=== PATIENT | male | born 1955 | race Caucasian/White ===

== ENCOUNTER → 2021-03-28 08:28 | Outpatient (CLI) | payer MEDICAID, SELFPAY ==
--- NOTE | 2021-03-28 08:34 | CT_ITS ---
STUDY: LOW DOSE CT LUNG CANCER SCREENING REASON FOR EXAM: Male, 65 years old. TOBACCO USE. The patient smoked 1 pack per day for 46 years. RADIATION DOSAGE (If Supplied By Facility): CTDIvol = ( 3.02 ) mGy, DLP = ( 104.95 ) mGycm TECHNIQUE: No contrast was administered. Low dose technique was utilized (average mAS-38 and kVp 120). 1.25 mm axial source images with a slice interval of 1.25-mm were reconstructed in lung windows. 2.5 mm axial source images with a slice interval of 2.5-mm were reconstructed in lung windows. 5.0 mm axial source images with a slice interval of 5.0-mm were reconstructed in soft tissue windows. Nodule measured using lung windows on PACS and/or independent workstation with automated measurement of minimum and maximum diameter. Nodule measurement reported as average diameter rounded to the nearest whole number. Growth is defined as an increase ins size of greater than 1.5 mm. COMPARISON: None. NODULES: No suspicious nodules are seen. Emphysema: Scarring at both lung apices. Emphysematous changes involving both lungs. Endobronchial lesion: None Aorta: Mild atherosclerotic plaques of the aortic arch. Coronary arteries: Coronary artery calcification. Heart: Unremarkable Pulmonary artery: Mediastinal nodes: Calcified subcarinal and right hilar lymph nodes. Other chest and abdominal findings: CT/Low Dose CT Lung Screening IMPRESSION: Lung-RADS category 2 - Continue annual screening with LDCT in 12 months. IMPORTANT NOTES FOR USE: ACR Lung-RADS Version 1.1 Assessment Categories Release Date: 2018 Category: Coded 0-4 bases on nodule(s) with highest degree of suspicion. Negative screen is defined as categories 1 and 2; a positive screen is defined as categories 3 and 4. Category 3 and 4A nodules that are unchanged on interval CT should be coded as category 2, and individuals returned to screening in 12 months. Category 4X: Category 3 or 4 nodules with additional imaging findings that increase the suspicion of lung cancer, such as spiculation, GGN that doubles in size in 1 year, enlarged lymph notes, etc. Category Modifiers: S (significant finding unrelated to lung cancer) Electronically Signed: Wesley Light MD at 12:41 EST , Service support ,
== END ==
PROVIDERS: PCP Student in an Organized Health Care Education/Training Program; Referring Provider Student in an Organized Health Care Education/Training Program; Visit Provider Student in an Organized Health Care Education/Training Program
DX: Z12.2 Encounter for screening for malignant neoplasm of respiratory organs (principal); Z87.891 Personal history of nicotine dependence
CPT/HCPCS: 71271

== ENCOUNTER 2023-09-06 12:27 | Inpatient (IN) | payer MEDICARE, MEDICAID, SELFPAY ==
[2023-09-06] VITALS (24 sets, daily range): BP systolic 130–180; BP diastolic 69–102; PULSE 58–94; RESP 13–25; TEMP 36.3–37.2; O2SAT 96–100; BMI 25.7; BMI 25.0
--- NOTE | 2023-09-06 12:34 | EKG12_ITS ---
Test Reason : CP Blood Pressure : / mmHG Vent. Rate : 060 BPM Atrial Rate : 060 BPM P-R Int : 130 ms QRS Dur : 100 ms QT Int : 434 ms P-R-T Axes : 048 014 100 degrees QTc Int : 434 ms Normal sinus rhythm Nonspecific ST and T wave abnormality Abnormal ECG Confirmed by DAIMAN KHAN, ADWOA ([id number]), legal editor ARLENE ARGUELLES ([id number]) on 09/09/2023 6:48:28 AM Referred By: Isiah Sahu Confirmed By:ADWOA SALGADO MD
[2023-09-06] MEDS: Heparin Injection (Vial) 5,000 UNIT/ML VIAL 4000 UNIT IV (12:38)
[2023-09-06] MEDS: TICAGRELOR 90 MG TABLET 180 MG PO (12:38)
--- NOTE | 2023-09-06 12:39 | EDS_ITS ---
HPI History of Present Illness Chief Complaint: Chest Pain Informant: patient Narrative Narrative: Patient is a 67-year-old male with history of hypertension, hyperlipidemia and depression presenting with chest pain. Patient developed chest pain suddenly around noon today. He had associated diaphoresis, describes the pain as aching and radiates to his bilateral shoulders. Denies any associated shortness of breath or nausea. 911 was called and EMS EKG showed ST elevations in inferior leads as well as reciprocal changes in the septal leads as well as depressions in 1 and aVL. STEMI alert was called. Patient was given 324 mg of aspirin prior to arrival. Patient did not have chest pain but notes it is mildly improved compared to when it first started. Denies any known history of coronary artery disease. No other complaints or concerns reported at this time. [facility] Home Medications ?Medication ?Instructions ?Recorded ?Last Taken ?Type amlodipine 5 mg tablet 5 mg PO DAILY 09/06/23 Unknown History atorvastatin 20 mg tablet 20 mg PO QHS 09/06/23 Unknown History venlafaxine 150 mg 150 mg PO DAILY 09/06/23 Unknown History capsule,extended release 24 hr Allergy/AdvReac Type Severity Reaction Status Date / Time No Known Allergies Allergy Verified 09/06/23 12:35 [facility] ED Constitutional Constitutional ED: Reports sweats; Denies chills Cardiovascular Cardiovascular: Reports as per HPI and chest pain; Denies palpitations Respiratory/Chest Respiratory/Chest: Denies cough or dyspnea Gastrointestinal Gastrointestinal: Denies nausea or vomiting Neurologic Neurologic: Denies paresthesias or weakness Psychiatric Psychiatric: Denies anxiety or depression Hematologic/Lymphatic Hematologic/Lymphatic: Denies easy bleeding or easy bruising EXAM Physical Exam Const Vital Signs: 09/06/23 12:30 09/06/23 12:34 Temperature 98.2 F Temperature Source Temporal Pulse Rate 58 L Respiratory Rate 18 Blood Pressure 180/93 H 180/93 H Blood Pressure Mean 122 Pulse Ox 100 Oxygen Delivery Method Room Air Positive well nourished and well developed Constitutional Narrative: Diaphoretic General Appearance ED: well developed and NAD HEENT Reports moist mucous membranes Eyes PERRL Neck supple and no JVD Chest Wall inspection of chest normal and palpation of chest normal Resp normal respiratory effort and clear to auscultation bilaterally Cardio regular rate, regular rhythm and no murmurs Peripheral Pulses: pulses 2+ throughout GI non-distended Extremity normal to inspection General Extremety ED: Negative for edema General Extremity: Negative for edema Neuro oriented x3 Sensorium / Orientation: awake and alert Motor Exam: Negative for general weakness Psych mental status grossly normal Skin no rashes or lesions noted and no wounds Heart Score History: Highly Suspicious ECG: Significant ST-Depression Age: >/= 65 years Risk Factors: >/= 3 Risk Factors or History of CAD Score: 8 MDM MDM MDM Narrative Medical decision making narrative: Patient evaluation of some chest pain. Prearrival EKG shows inferior NM. STEMI alert is called. Upon arrival patient continues have chest pain. STEMI protocol followed. Patient is given IV heparin and Brilinta in the emergency room. Repeat EKG in the emergency room no longer shows a STEMI but given his presentation, prior EKG and continued chest pain patient will still be sent to the Flight Agent. Case discussed at the bedside with cardiology, Dr. Parish. Patient is agreeable this plan of care. is at the bedside and they both understand of the plan of care and his diagnosis at this time. Due to the inferior NM patient is not given nitroglycerin for chest pain in the ER. Rhythm Strip Rhythm Strip: Sinus Rhythm Rate: 60 Ectopy: None EKG Initial EKG: Attestation: I personally reviewed and interpreted this EKG as follows: Interpretation: Sinus Rhythm Comments: Normal sinus rhythm at a rate of 60 bpm Normal axis Normal intervals Nonspecific T wave changes throughout but no clear ST elevation NM Management Discussion w/another healthcare provider: Hospitalist and Biology Specialist Critical Care Time Critical Care Time: Yes Critical care time (excluding procedures): 30-74 minutes (30), Discussing w/Patient &/or Family/Terminal Block Assembler, Discussing w/Consultants and Arranging Admissi on or Transfer Discharge Plan Triage Chief Complaint: Chest Pain ED Provider: Mary Rosas Dx/Rx/DC Orders Clinical Impression: ST elevation (STEMI) myocardial infarction, Chest pain, Hypertension Prescriptions: No Action atorvastatin 20 mg tablet 20 mg PO QHS venlafaxine 150 mg capsule,extended release 24hr 150 mg PO DAILY amlodipine 5 mg tablet 5 mg PO DAILY Primary Care Provider: Colton Rowe Referrals: Colton Rowe DO [Primary Care Provider] - Print Language: Vietnamese Disposition Disposition: Acute Care [facility]
--- NOTE | 2023-09-06 12:39 | ED.VIS.CHEST ---
HPI History of Present Illness Chief Complaint: Chest Pain Informant: patient Narrative Narrative: Patient is a 67-year-old male with history of hypertension, hyperlipidemia and depression presenting with chest pain. Patient developed chest pain suddenly around noon today. He had associated diaphoresis, describes the pain as aching and radiates to his bilateral shoulders. Denies any associated shortness of breath or nausea. 911 was called and EMS EKG showed ST elevations in inferior leads as well as reciprocal changes in the septal leads as well as depressions in 1 and aVL. STEMI alert was called. Patient was given 324 mg of aspirin prior to arrival. Patient did not have chest pain but notes it is mildly improved compared to when it first started. Denies any known history of coronary artery disease. No other complaints or concerns reported at this time. [facility] Medical History (Updated 09/06/23 @ 14:34 by Becky Munoz) Smoker Depression Home Medications ?Medication ?Instructions ?Recorded ?Last Taken ?Type amlodipine 5 mg tablet 5 mg PO DAILY blood pressure 09/06/23 09/06/23 History atorvastatin 20 mg tablet 20 mg PO QHS cholesterol 09/06/23 09/05/23 History venlafaxine 150 mg 150 mg PO DAILY depression 09/06/23 09/06/23 History capsule,extended release 24 hr Allergy/AdvReac Type Severity Reaction Status Date / Time No Known Allergies Allergy Verified 09/06/23 12:35 Social History Smoking Status: Current every day smoker tobacco type: cigarettes ROS ROS ED Constitutional Constitutional ED: Reports sweats; Denies chills Cardiovascular Cardiovascular: Reports as per HPI and chest pain; Denies palpitations Respiratory/Chest Respiratory/Chest: Denies cough or dyspnea Gastrointestinal Gastrointestinal: Denies nausea or vomiting Neurologic Neurologic: Denies paresthesias or weakness Psychiatric Psychiatric: Denies anxiety or depression Hematologic/Lymphatic Hematologic/Lymphatic: Denies easy bleeding or easy bruising EXAM Physical Exam Const Vital Signs: 09/06/23 12:30 09/06/23 12:34 09/06/23 12:34 Temperature 98.2 F Temperature Source Temporal Pulse Rate 58 L Respiratory Rate 18 Respiratory Effort Blood Pressure 180/93 H 180/93 H Blood Pressure Mean 122 Blood Pressure Source Blood Pressure Position Blood Pressure Location Baseline BP Pulse Ox 100 Oxygen Delivery Method Room Air Room Air 05/31/24 12:45 09/06/23 14:31 09/06/23 14:46 Temperature 97.4 F L Temperature Source Temporal Pulse Rate 94 85 Respiratory Rate 13 13 Respiratory Effort Normal Blood Pressure 138/69 H 155/102 H Blood Pressure Mean 92 119 Blood Pressure Source Monitor Monitor Blood Pressure Position Semi-Fowlers Semi-Fowlers Blood Pressure Location Left Arm Left Arm Baseline BP 135/80 135/80 Pulse Ox 99 98 Oxygen Delivery Method Room Air Room Air Positive well nourished and well developed Constitutional Narrative: Diaphoretic General Appearance ED: well developed and NAD HEENT Reports moist mucous membranes Eyes PERRL Neck supple and no JVD Chest Wall inspection of chest normal and palpation of chest normal Resp normal respiratory effort and clear to auscultation bilaterally Cardio regular rate, regular rhythm and no murmurs Peripheral Pulses: pulses 2+ throughout GI non-distended Extremity normal to inspection General Extremety ED: Negative for edema General Extremity: Negative for edema Neuro oriented x3 Sensorium / Orientation: awake and alert Motor Exam: Negative for general weakness Psych mental status grossly normal Skin no rashes or lesions noted and no wounds Heart Score History: Highly Suspicious ECG: Significant ST-Depression Age: >/= 65 years Risk Factors: >/= 3 Risk Factors or History of CAD Score: 8 MDM MDM MDM Narrative Medical decision making narrative: Patient evaluation of some chest pain. Prearrival EKG shows inferior NE. STEMI alert is called. Upon arrival patient continues have chest pain. STEMI protocol followed. Patient is given IV heparin and Brilinta in the emergency room. Repeat EKG in the emergency room no longer shows a STEMI but given his presentation, prior EKG and continued chest pain patient will still be sent to the Gastroenterology Manager. Case discussed at the bedside with cardiology, Dr. Parish. Patient is agreeable this plan of care. is at the bedside and they both understand of the plan of care and his diagnosis at this time. Due to the inferior NE patient is not given nitroglycerin for chest pain in the ER. Lab Data Attestation: I reviewed the patient's lab results. Labs: Laboratory Results - last 24 hr 09/06/23 09/06/23 12:40 13:14 WBC 6.7 RBC 4.66 Hgb 14.3 Hct 42.7 MCV 91.6 MCH 30.7 MCHC 33.5 RDW Std Deviation 44.4 H RDW Coeff of Estella 13.2 Plt Count 259 MPV 9.2 Immature Gran % (Auto) 0.100 Neut % (Auto) 50.8 Lymph % (Auto) 36.4 Door % (Auto) 10.5 H Eos % (Auto) 1.5 Baso % (Auto) 0.7 Absolute Neuts (auto) 3.4 Absolute Lymphs (auto) 2.45 Nucleated RBC % 0 PT 13.0 INR 1.0 APTT 26.0 Activated Clotting Time 214 H Sodium 138 Potassium 3.3 L Chloride 106 Carbon Dioxide 25.0 Anion Gap 7 BUN 15 Creatinine 1.16 Estim Creat Clear Calc 62.64 Est GFR (MDRD) Af Amer 81 Est GFR (MDRD) Non-Af 67 BUN/Creatinine Ratio 12.9 Glucose 138 H Calcium 8.6 Troponin I High Sens 18 B-Natriuretic Peptide 58.6 Rhythm Strip Rhythm Strip: Sinus Rhythm Rate: 60 Ectopy: None EKG Initial EKG: Attestation: I personally reviewed and interpreted this EKG as follows: Interpretation: Sinus Rhythm Comments: Normal sinus rhythm at a rate of 60 bpm Normal axis Normal intervals Nonspecific T wave changes throughout but no clear ST elevation NE Management Discussion w/another healthcare provider: Hospitalist and Information Technology Program Manager Critical Care Time Critical Care Time: Yes Critical care time (excluding procedures): 30-74 minutes (30), Discussing w/Patient &/or Family/Rag Inspector, Discussing w/Consultants and Arranging Admission or Transfer Discharge Plan Dx/Rx/DC Orders Clinical Impression: ST elevation (STEMI) myocardial infarction, Chest pain, Hypertension Disposition Disposition: Acute Care [facility] [place] Discharge Date/Time: 09/06/23 12:50
[2023-09-06 12:50] LABS: Absolute Lymphocyte Count 2.45 X10^3/uL (0.83-4.51); Absolute Neutrophil Count 3.4 X10^3/uL (2.0-7.7); Basophil# 0.05 X10^3/uL; Basophil% 0.7 % (0-1); Eosinophils% 1.5 % (0-5); Hematocrit 42.7 % (40-54); Hemoglobin 14.3 g/dL (13.0-16.5); Lymphocyte # 2.45 X10^3/ul (0.83-4.51); Lymphocyte % 36.4 % (19-41); Mean Corp Hgb Conc 33.5 g/dL (32-36); Mean Corpuscular Hgb 30.7 pg (27.0-32.0); Mean Corpuscular Volume 91.6 fL (80-94); Mean Platelet Vol. 9.2 fl (6.2-12.0); Monocyte# 0.71 X10^3/uL; Monocyte% 10.5 % (0-10); NRBC Flagged by Analyzer 0 % (0-5); Neutrophil # 3.41 X10^3/uL (2.7-7.7); Neutrophil % 50.8 % (47-70); Platelet Count 259 K/mm3 (150-450); RBC Distribution Width CV 13.2 % (11.6-14.6); RBC Distribution Width SD 44.4 fl (35.1-43.9); Red Blood Count 4.66 M/mm3 (4.6-6.2); White Blood Count 6.7 K/mm3 (4.4-11.0)
[2023-09-06 13:07] LABS: Anion Gap 7 (5-15); BUN 15 mg/dL (7-18); BUN/Creat Ratio 12.9 RATIO (10-20); Calcium,Total 8.6 mg/dL (8.5-10.1); Chloride 106 mmol/L (98-107); Creatinine, Serum 1.16 mg/dL (0.70-1.30); EST Glomerular Filtration Rate 67 mL/min (>60); Est Glom Filt Rate - Afr Amer 81 mL/min (>60); Estimated Creatinine Clearance 62.64 ml/min; Glucose 138 mg/dL (74-106); Potassium 3.3 mmol/L (3.5-5.1); Sodium Level 138 mmol/L (136-145); Troponin-I HS 18 pg/mL (3.0-78.0)
[2023-09-06 13:12] LABS: BNP,B-Type NATRIURETIC PEPTIDE 58.6 pg/mL (0-100)
--- NOTE | 2023-09-06 13:42 | CHAPLAIN ---
Type of Pastoral Visit ___ Initial Visit ___ Follow-up Visit ___ On-call Visit ___ General Patient Visit ___ Spiritual Assessment ___ Family Conference ___ Bereavement _x__ Rapid Response ___ Code Blue ___ Other (describe below) Pastoral Care Referral From ___ Patient ___ Family ___ Nurse ___ Physician ___ Battery Plate Remover ___ Fish Hatchery Manager _x__ Other (describe below) Sacrament/Intervention _x__ Active listening ___ Anointing ___ Hoahaoism ___ Bereavement ___ Communion ___ Jennifer exploration ___ ___ Life review _x__ Prayer ___ Reconciliation ___ Sacrament of Sick _x__ Supportive presence ___ Wedding ___ Other (describe below) Pastoral Comments responded to stemi alert in ED and found spouse had arrived and was in the waiting area; offered support and presence; escorted spouse back to patient room when appropriate and then took her to Sheet Metal Assembler along with a daughter that had arrived; spouse requested a prayer to be spoken; sat with family members, got them beverages, and went back to ED to find any other family members; returned to waiting area of Sheet Metal Assembler to assist family, ask about their family and keep them focused; all are doing as expected as pt is being treated;
[2023-09-06 13:55] LABS: ACT Activated Clotting Time 214 sec (74-137)
--- NOTE | 2023-09-06 14:54 | CRPHASE1 ---
Patient Communication Patient Information Former Patient:: Phase I PHII Cardiac Rehab Discussed with Patient:: Yes Guide to Cardiac Rehab Given to Patient:: Yes Cardiac Rehab Facility Choice List Given to Patient:: Yes Communication to Cardiac Rehab Resin Shaver:: Isiah Sahu Sessions:: 36 sessions - 3 days/wk, 12 weeks Cardiac Rehabilitation Info Program Information Cardiac Rehabilitation Program Information: Cardiac Rehab The cardiac rehab team at [facility] consists of highly skilled exercise physiologists, nurses, respiratory therapists and physicians working together with you. Our purpose is to help you have a full recovery and achieve the goals you set for yourself. Over the years many of our patients have returned to activities they assumed they would never do again! We can help restore your confidence and motivation to make lifestyle changes that can have a significant impact on your health and quality of life! We can help answer questions and concerns you may have about exercise, lifestyle, medications, diet, stress and anxiety which are common following a hospitalization. WE monitor ECG and vital signs during exercise and discuss your progress with you and report to your physician(s). Cardiac Rehab is proven to help reduce readmissions, improve functional capacity and lower recurrence of problems with your heart. Our Cardiac Rehab program is Certified by the [place] [employer] Pulmonary [employer] (AACVPR) and Accredited by the [employer] through our [facility]. You can contact us at . We invite you to call us with your questions or to get started in our program. If you have other questions or concerns be sure to ask your physician/provider during your follow-up visit. WE look forward to seeing you!
--- NOTE | 2023-09-06 14:55 | CRPH1.INSTRU ---
General Education Discussed with Patient CAD and cardiac anatomy and function:: Patient communicates acknowledgment Explanation of diagnoses and procedures:: Patient communicates acknowledgment Sign/Symptoms of MT:: Patient communicates acknowledgment Antiplatelet therapy: Patient communicates acknowledgment Proper use of NTG-SL: Patient communicates acknowledgment Emergency procedures and activation of EMS: Patient communicates acknowledgment Compliance of all prescribed medications: Patient communicates acknowledgment Smoking Risk Factors Patient Nicotine/Smoking Risk Factors Are:: Cigarettes Recommendations Recommendations Include:: Smoking cessation strategies/Smoking packet Response Code Nicotine/Smoking Response Code:: Patient communicates acknowledgment Dyslipidemia Recommendations Recommendations Include:: Lipid profile not available Response Code Dyslipidemia Response Code:: Patient communicates acknowledgment Overweight/Obesity Risk Factors Patient Overweight/Obesity Risk Factors Are:: BMI Normal [24-29 & > 65 years old] Response Code Overweight/Obesity:: Patient communicates acknowledgment Hypertension Recommendations Recommendations Include:: Maintain BP <130/85 Response Code Hypertension:: Patient communicates acknowledgment Heart Disease Risk Factors Patient Heart Disease Risk Factors Are:: Previous cardiac event Recommendations Recommendations Include:: Educated family members of their risk Response Code Heart Disease Response Code:: Patient communicates acknowledgment Diabetes Risk Factors Patient Diabetes Risk Factors Are:: No documented hx of diabetes Metabolic Syndrome Recommendations Recommendations Include:: Does not meet criteria Sedentary Recommendations Recommendations Include:: Monitored Outpatient Cardiac Rehab Response Code Sedentary Response Code:: Patient communicates acknowledgment Stress Recommendations Recommendations Include:: Identification of stressors, and assessment of coping skills and Stress management techniques Response Code Stress Response Code:: Patient communicates acknowledgment
--- NOTE | 2023-09-06 15:06 | PCI.CARDCATH ---
PCI Cardiac Cath Report PCI Report: PCI cardiac cath report; 1. Selective left coronary angiography 2. Selective right coronary angiography 3. Successful PCI of the culprit with ruptured plaque and a large thrombus in the proximal RCA 90% with BRENDA II flow Primary stenting using drug-eluting stent/3.5 x 34 mm [place] frontier / SHANTAL/drug-eluting stent, followed by postdilatation Using 3.5 x 20 mm NC balloon. achievement of excellent result with BRENDA-3 flow in the RCA which is a large dominant 4. Measurement of LVEDP and a pullback pressure from the LV to the aorta #5 placement of TR band to close the right radial artery arteriotomy site Preprocedure diagnosis; 67-year-old patient brought by the EMS to the ER at [facility] with severe retrosternal chest pain and change in the EKG with ST elevation noted in the inferior leads He was given heparin 4000 and Brilinta by the EMS service. Evidently patient was working in his house when he started to develop severe retrosternal chest pain become diaphoretic with feeling dizzy lightheadedness He called his who is at work as well as the EMS service. According to the history he had a history of smoking no other significant history in particular no history of diabetes no history of stroke no history of prior coronary artery evaluation by cardiac cath. No coronary artery stents. Symptoms resolved and chest pain improved with EKG normalized Based on the clinical presentation was taken as an emergency to the [facility] with a clinical diagnosis of ACS. As he does not qualify for the STEMI criteria on the second EKG and the symptoms of chest pain improved with heparin Brilinta by EMS. Consent; Risk-benefit procedure explained detail and consent for c emergency cardiac catheterization. Risk and benefit explained in detail to the patient and to the . Diagnostic and interventional equipment used 1. 6 Marshallese sheaths placed the right radial artery using ABL [employer]msumHongdianzhibo sheath 2. 5 Marshallese JL 3.5 diagnostic catheter 3. 5 Marshallese JR4 diagnostic catheter 4. 6 Marshallese JR4 guide catheter 5. 0.14 180 cm run-through extra floppy straight guide wire. 6. 0.035 to 60 cm J exchanged wire. 7. 3.5 x 34 mm [place] frontier drug-eluting stent 8. 3.5 x 20 mm NC balloon 9. TR band applied to right radial artery arteriotomy site. Medication used in the [facility]; 1. Heparin added and a cocktail of heparin, nitroglycerin and verapamil was given through the right radial artery sheath. ACT level is acceptable. Patient has hypertension and hydralazine was given IV as well as nitroglycerin IV infusion for hypertension control Intracoronary nitroglycerin used x 3. Procedure in detail patient brought as an emergency to the [facility] Will proceed with access from the right radial artery and then to proceed with a diagnostic catheter advancing into [place] selective angiographic view of the left coronary system obtained Catheter exchanged for 5 Marshallese JR4 and selective angiographic view of the right coronary system were obtained Identified the culprit lesion is a large thrombus with ruptured plaque in the proximal RCA. Then we will proceed with the guide catheter 6 Marshallese JR4 We used the run-through guidewire across the lesion and then we proceed with primary stenting and achieve excellent result this was followed by burst dilatation using NC balloon 0.5 x 20 mm. He was given nitroglycerin IC x 2. BRENDA-3 flow acute change in the dominant RCA with no complication Findings Hemodynamic; LVEDP measuring 22 mmHg 2. No systolic gradient across aortic valve Coronary angiography; 1. Left main coronary artery large normal angiographically bifurcating into LAD and left circumflex. 2. Left anterior descending large vessel reach all the way to the apex Abundant septal branches with a large periseptal 3 diagonal branches were noted The mid LAD had nonobstructive sclerosis of around 20. The pheresed diagonal had a proximal around 30 to 40%. 4. The left circumflex large angiographically no significant atherosclerosis 5. The culprit lesion identified at the proximal RCA with a large thrombus burden with a ruptured plaque and successful PCI as explained in detail. Conclusion recommendation. 67-year-old patient with history of smoking, hypertension Presented with severe retrosternal chest pain change in the EKG in the inferior which resolves the ST segment normalized and symptoms of chest pain normalized with medical treatment using heparin and Brilinta in the ER An emergency cardiac catheterization revealed the culprit lesion with successful PCI 1. Continue dual antiplatelet therapy with Brilinta and aspirin 2. Patient will be admitted to CCU for monitoring 3. Echocardiogram to evaluate and assess LV function 4. Atorvastatin 80 mg 5. Continue on nitroglycerin IV over the night due to hypertension and monitoring of blood pressure 6. Patient will be scheduled for cardiac rehab phase 1 7. [facility]ACC,[facility]
--- NOTE | 2023-09-06 15:08 | PCM.HP.STD ---
HPI - General General Date of Admission: 09/06/23 Date of Service: 09/06/23 Chief Complaint: Chest pain HPI Narrative BIBI GARCIA, is a 67 M who presents to the emergency room at [facility] with complaints of substernal chest pain radiating into his neck and down his arms, it was associated with diaphoresis, he described the pain as an ache. Patient called 911, EMS EKG showed ST elevations in the inferior leads as well as reciprocal changes in the septal leads as well as depressions in 1 and aVL. STEMI alert was called, patient was given 324 mg aspirin prior to arrival in the ER. Patient stated that his chest pain was improved compared to when it first started. Patient was started on IV heparin and Brilinta in the emergency room, interventional cardiology was contacted and the patient was taken to the [facility] where a stent was placed in the right coronary artery. 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 Patient was admitted to ICU after the procedure in stable condition, his blood pressure was elevated so his medications were adjusted. Patient had no complaints of chest pain when I examined him in the ICU. Patient's sons were present and I answered any questions they might have. Patient stated that he had a heart attack approximately 10 to 15 years ago and underwent a catheterization but no intervention was done at that time. Patient stated that he stopped taking aspirin on his own. Patient does smoke. [facility] Medical History (Updated 09/06/23 @ 14:34 by Becky Munoz) Smoker Depression Home Medications ?Medication ?Instructions ?Recorded ?Last Taken ?Type amlodipine 5 mg tablet 5 mg PO DAILY blood pressure 09/06/23 09/06/23 History atorvastatin 20 mg tablet 20 mg PO QHS cholesterol 09/06/23 09/05/23 History venlafaxine 150 mg 150 mg PO DAILY depression 09/06/23 09/06/23 History capsule,extended release 24 hr Allergy/AdvReac Type Severity Reaction Status Date / Time No Known Allergies Allergy Verified 09/06/23 12:35 Social History Smoking Status: Current every day smoker tobacco type: cigarettes ROS Constitutional Constitutional: Denies anorexia, change in weight, chills, fatigue, fever(s), night sweats or weakness Eyes Eyes: Denies blurry vision, change in vision, discharge from eye(s) or eye pain Cardiovascular Cardiovascular: Reports chest pain; Denies claudication, edema or palpitations Respiratory/Chest Respiratory/Chest: Denies cough, dyspnea, hemoptysis, shortness of breath at rest or shortness of breath with exertion Gastrointestinal Gastrointestinal: Denies abdominal pain, constipation, diarrhea, hematemesis, hematochezia, melena, nausea or vomiting Genitourinary Genitourinary: Denies dysuria, hematuria, urinary frequency, urinary hesitancy, urinary incontinence or urinary urgency Musculoskeletal Musculoskeletal: Denies back pain, joint pain, joint stiffness, joint swelling, myalgias or neck pain Neurologic Neurologic: Denies abnormal gait, abnormal speech, dizziness, focal weakness, headache(s), loss of vision, numbness, other visual disturbances, paresthesias, syncope or tingling Psychiatric Psychiatric: Denies anxiety, cognitive impairment, depression, irritability, mood swings or suicidal ideation Endocrine Endocrinology: Denies change in body appearance, cold intolerance, excessive sweating, heat intolerance, polydipsia or polyuria Hematologic/Lymphatic Hematologic/Lymphatic: Denies none, anemia, easy bleeding, easy bruising or lymphadenopathy Allergic/Immunologic Allergic/Immunologic: Denies rhinitis, urticaria, eczemia or asthma Vital Signs Vital Signs Vital Signs: 09/06/23 12:30 09/06/23 12:34 09/06/23 12:34 Temperature 98.2 F Temperature Source Temporal Pulse Rate 58 L Respiratory Rate 18 Respiratory Effort Blood Pressure 180/93 H 180/93 H Blood Pressure Mean 122 Blood Pressure Source Blood Pressure Position Blood Pressure Location Baseline BP Pulse Ox 100 Oxygen Delivery Method Room Air Room Air 09/06/23 12:45 09/06/23 14:31 09/06/23 14:46 Temperature 97.4 F L Temperature Source Temporal Pulse Rate 94 85 Respiratory Rate 13 13 Respiratory Effort Normal Blood Pressure 138/69 H 155/102 H Blood Pressure Mean 92 119 Blood Pressure Source Monitor Monitor Blood Pressure Position Semi-Fowlers Semi-Fowlers Blood Pressure Location Left Arm Left Arm Baseline BP 135/80 135/80 Pulse Ox 99 98 Oxygen Delivery Method Room Air Room Air Weight Weight: 76.7 kg Body Mass Index (BMI) 25.0 Physical Exam Const alert, oriented x3, no apparent distress, average body habitus and healthy appearing General Appearance: cooperative, well kempt and well developed Orientation / Consciousness: awake, oriented to person, oriented to place and oriented to time HEENT normocephalic, head/scalp atraumatic, hearing grossly normal bilaterally and moist oral mucous membranes Eyes PERRL, EOMs intact bilaterally and conjunctivae normal Neck supple, no JVD, thyroid normal and no carotid bruits General: trachea midline Resp normal respiratory effort, no retractions, no use of accessory muscles and clear to auscultation bilaterally Auscultation: Negative for rales, rhonchi or wheezes Cardio regular rate, regular rhythm, S1 normal heart sound, S2 normal heart sound, no murmurs, no rub and no gallops GI normal to inspection, nondistended, normoactive bowel sounds, soft to palpation, non-tender and non-distended Extremity no clubbing, cyanosis or edema Skin no rashes or lesions noted General Skin Exam: no breakdown Neuro oriented x3, CN's II-XII intact bilaterally, moves all extremities, no focal motor deficits and no sensory deficits noted Sensorium / Orientation: awake and alert Speech: speech normal Psych affect normal Results Lab / Micro Data 09/06/23 12:40 09/06/23 12:40 Labs: Laboratory Results - last 24 hr 09/06/23 12:40: WBC 6.7, RBC 4.66, Hgb 14.3, Hct 42.7, MCV 91.6, MCH 30.7, MCHC 33.5, RDW Std Deviation 44.4 H, RDW Coeff of Estella 13.2, Plt Count 259, MPV 9.2, Immature Gran % (Auto) 0.100, Neut % (Auto) 50.8, Lymph % (Auto) 36.4, [place] % (Auto) 10.5 H, Eos % (Auto) 1.5, Baso % (Auto) 0.7, Absolute Neuts (auto) 3.4, Absolute Lymphs (auto) 2.45, Nucleated RBC % 0, PT 13.0, INR 1.0, APTT 26.0, Sodium 138, Potassium 3.3 L, Chloride 106, Carbon Dioxide 25.0, Anion Gap 7, BUN 15, Creatinine 1.16, Estim Creat Clear Calc 62.64, Est GFR (MDRD) Af Amer 81, Est GFR (MDRD) Non-Af 67, BUN/Creatinine Ratio 12.9, Glucose 138 H, Calcium 8.6, Troponin I High Sens 18, B-Natriuretic Peptide 58.6 09/06/23 13:14: Activated Clotting Time 214 H Rhythm Strip Rhythm Strip: Sinus Rhythm Rate: 60 Ectopy: None Assessment & Plan Assessment/Plan (1) ST elevation (STEMI) myocardial infarction: PLAN: Plan 1. Acute ST elevation [place]-again interventional cardiology placed a SHANTAL in the right coronary artery, they also said there was a thrombus visible in the artery. Patient was admitted to ICU and he was placed on medications and he will have an echocardiogram performed. #2 hyperlipidemia-patient's atorvastatin will be increased to 80 mg daily #3 essential hypertension-patient's medications will be adjusted, blood pressure will be monitored #4 chronic depression-patient is on Effexor Total clinical time spent by myself addressing the patient's medical issues, reviewing all of his data, and collaborating with patient's care team: 75 minutes Charges/Coding Visit Charges Inpatient E&M: 99430 Init Hosp L3
--- NOTE | 2023-09-06 15:13 | ECHOD_ITS ---
Reason For Study: S/P OH Procedure This was a 2D Doppler, Color Flow transthoracic echocardiogram. Exam performed portable in ICU/CCU. Left Ventricle Normal LV size. The estimated ejection fraction is 35-40% %. Right Ventricle Normal right ventricle. Mild segmental dysfunction of right ventricle. Atria Normal left atrium. Mitral Valve The mitral valve is structurally normal. No prolapse or stenosis seen. Tricuspid Valve Normal tricuspid valve. Mild tricuspid valve insufficiency. Aortic Valve Trisinus/trileaflet aortic valve. Pulmonic Valve The pulmonic valve is not well visualized. Great Vessels Normal aortic root. Pericardium/Pleural No pericardial effusion. Medication Performed a rapid injection of agitated mix of 9 cc saline and 1cc air to assess for atrial septal defect. MMode/2D Measurements & Calculations LVIDd: 4.8 cm IVSd: 1.3 cm LAV(MOD-sp4): 38.8 ml LVIDs: 3.5 cm LVPWd: 1.4 cm RVDd: 3.3 cm FS: 27.2 % LVAd ap4: 28.0 cm2 SV(MOD-sp4): 31.2 ml SV(sp4-el): 33.7 ml LVLd ap4: 8.2 cm EDV(MOD-sp4): 82.4 ml EDV(sp4-el): 81.6 ml LVAs ap4: 20.6 cm2 LVLs ap4: 7.5 cm ESV(MOD-sp4): 51.2 ml ESV(sp4-el): 47.9 ml EF(MOD-sp4): 37.9 % EF(sp4-el): 41.3 % LA A4 area: 15.8 cm2 RA A4 area: 19.8 cm2 TAPSE: 2.4 cm Time Measurements MV dec time: 0.26 sec Doppler Measurements & Calculations MV E max north: 67.4 cm/sec Lat Peak E' North: 10.1 cm/sec Med Peak E' North: 7.5 cm/sec MV A max north: 66.8 cm/sec E/E' lat: 6.7 E/E' med: 9.0 MV E/A: 1.0 MV V2 max: 83.2 cm/sec Ao V2 max: 143.4 cm/sec MV max P.8 mmHg MV dec slope: 258.7 cm/sec2 Ao max P.2 mmHg MV V2 mean: 47.3 cm/sec Ao V2 mean: 98.5 cm/sec MV mean P.0 mmHg Ao mean P.5 mmHg MV V2 VTI: 20.0 cm Ao V2 VTI: 26.1 cm AV (velocity ratio): 0.87 LV V1 max: 124.6 cm/sec PA V2 max: 81.4 cm/sec TR max north: 203.0 cm/sec LV V1 max P.2 mmHg PA max PG (full): 0.79 mmHg TR max P.5 mmHg LV V1 mean P.5 mmHg LV V1 mean: 87.4 cm/sec LV V1 VTI: 22.6 cm ECHO/Echo Complete Interpretation Summary The estimated ejection fraction is 35-40% %. Moderate LV systolic dysfunction With inferior hypokinesia Mild TR No prior study to compare. Ordering Physician: Rivas Adams Referring Physician: Isiah Sahu Performed By: Lauren Meade and Student
--- NOTE | 2023-09-06 15:15 | EKG12_ITS ---
Test Reason : post stent Blood Pressure : / mmHG Vent. Rate : 068 BPM Atrial Rate : 068 BPM P-R Int : 160 ms QRS Dur : 098 ms QT Int : 434 ms P-R-T Axes : 075 026 060 degrees QTc Int : 461 ms Sinus rhythm with marked sinus arrhythmia Otherwise normal ECG When compared with ECG of 13-NOV-2007 08:12, MANUAL COMPARISON REQUIRED, DATA IS UNCONFIRMED Confirmed by Colton Lyon ([id number]), design editor ARLENE ARGUELLES ([id number]) on 09/09/2023 9:31:37 AM Referred By: Isiah Sahu Confirmed By:Colton Lyon
[2023-09-06] MEDS: Nitroglycerin Oint 1 INCH PACKET TD (15:45)
[2023-09-06] MEDS: 0.9% Normal Saline (1000mL) 1,000 ML 75 ML IV (15:45)
[2023-09-06] MEDS: Lisinopril 10 MG Tablet PO (16:19)
[2023-09-06] MEDS: Potassium Chloride Oral Tablet 20 MEQ 40 MEQ PO (16:19)
[2023-09-06] MEDS: Acetaminophen 325 MG Tablet 650 MG PO (20:00)
[2023-09-06] MEDS: TICAGRELOR 90 MG TABLET PO (21:37)
[2023-09-06] MEDS: Heparin Injection (Vial) 5,000 UNIT/ML VIAL 5000 UNIT SC (21:37)
[2023-09-06] MEDS: Carvedilol 12.5 MG Tablet PO (21:37)
[2023-09-06] MEDS: Atorvastatin Calcium 80 MG Tablet PO (21:37)
[2023-09-07] VITALS (25 sets, daily range): BP systolic 105–167; BP diastolic 54–95; PULSE 51–85; RESP 12–20; TEMP 36.4–37; O2SAT 95–100; BMI 24.2
[2023-09-07] MEDS: 0.9% Normal Saline (1000mL) 1,000 ML 75 ML IV (04:20)
[2023-09-07 04:30] LABS: Hematocrit 44.6 % (40-54); Hemoglobin 14.6 g/dL (13.0-16.5); Mean Corp Hgb Conc 32.7 g/dL (32-36); Mean Corpuscular Hgb 29.9 pg (27.0-32.0); Mean Corpuscular Volume 91.4 fL (80-94); Mean Platelet Vol. 9.3 fl (6.2-12.0); Platelet Count 257 K/mm3 (150-450); RBC Distribution Width CV 13.2 % (11.6-14.6); RBC Distribution Width SD 45.1 fl (35.1-43.9); Red Blood Count 4.88 M/mm3 (4.6-6.2); White Blood Count 8.3 K/mm3 (4.4-11.0)
[2023-09-07 04:48] LABS: AST(SGOT) 42 U/L (15-37); Alanine Aminotransfer ALT/SGPT 23 U/L (16-61); Albumin, Serum 3.4 g/dL (3.2-5.0); Alkaline Phosphatase 65 U/L (45-117); Anion Gap 6 (5-15); BUN 13 mg/dL (7-18); BUN/Creat Ratio 14.1 RATIO (10-20); Calcium,Total 8.8 mg/dL (8.5-10.1); Chloride 109 mmol/L (98-107); Cholesterol 187 mg/dL (200); Creatinine, Serum 0.92 mg/dL (0.70-1.30); EST Glomerular Filtration Rate 87 mL/min (>60); Est Glom Filt Rate - Afr Amer 105 mL/min (>60); Estimated Creatinine Clearance 78.98 ml/min; Globulin 3.3 g/dL (2.2-4.2); Glucose 135 mg/dL (74-106); High Density Lipoprotein 66 mg/dL; Protein, Total 6.7 g/dL (6.4-8.2); Sodium Level 139 mmol/L (136-145); Triglycerides 91 mg/dL; Very Low Density Lipoprotein 18 mg/dL (5-40)
[2023-09-07] MEDS: TICAGRELOR 90 MG TABLET PO ×2 (08:13→21:12)
[2023-09-07] MEDS: Heparin Injection (Vial) 5,000 UNIT/ML VIAL 5000 UNIT SC ×2 (08:13→21:12)
[2023-09-07] MEDS: Aspirin E.C. 81 MG Tablet PO (08:13)
[2023-09-07] MEDS: amLODIPine 5 MG Tablet PO (08:14)
[2023-09-07] MEDS: Carvedilol 12.5 MG Tablet PO ×2 (08:14→21:11)
[2023-09-07] MEDS: Venlafaxine XR 150 MG Capsule PO (08:15)
--- NOTE | 2023-09-07 08:27 | PN.HOSP_ITS ---
Subjective Subjective Doing well, no issues overnight. Vital signs are stable Objective Data Objective Data Vital Signs: Vital Signs Temp Pulse Resp BP Pulse Ox O2 Del Method 97.5 F L 85 18 130/79 H 95 Room Air 09/07/23 08:00 09/07/23 08:00 09/07/23 08:00 09/07/23 08:00 09/07/23 08:00 09/07/23 08:00 Oxygen Delivery Method Room Air Weight: 163 lb 5.8 oz Body Mass Index (BMI) 24.2 Intake & Output: Intake and Output for Last 24 Hours 09/06/23 09/07/23 09/08/23 03:59 03:59 03:59 Intake Total 400 / 400 943.75 / 943.75 Output Total 2750 / 2750 725 / 725 Balance -2350 / -2350 218.75 / 218.75 Medical Nutrition Assessment Dietitian: Malnutrition Criteria Met Start: 09/06/23 15:54 Freq: Status: Active Protocol: Document 09/06/23 15:54 POPEYE (Rec: 09/06/23 15:54 POPEYE [id number]) Nutrition Malnutrition Evidence of Malnutrition Exists Yes Malnutrition (severe): Acute Illness/Injury Evidenced By Suboptimal Energy Intake ( Severe),Weight Loss (Severe) Clinical Problem Acute Disease or Injury Related Malnutrition Etiology related to not feeling well and inadequate energy intake Signs/Symptoms as evidenced by po intake <50% of usual and 6.3% unintended wt loss x [address] [employer]. Status Active Problem Recommendation Dietitian Recommendations/Changes Continue Cardiac diet as ordered. Provide 4 oz ensure compact - chocolate - w/ meals for increased nutrition if consumed. Lab / Micro Data 09/07/23 04:20 09/07/23 04:20 Labs: Laboratory Results - last 24 hr 09/06/23 12:40: WBC 6.7, RBC 4.66, Hgb 14.3, Hct 42.7, MCV 91.6, MCH 30.7, MCHC 33.5, RDW Std Deviation 44.4 H, RDW Coeff of Estella 13.2, Plt Count 259, MPV 9.2, Immature Gran % (Auto) 0.100, Neut % (Auto) 50.8, Lymph % (Auto) 36.4, [place] % (Auto) 10.5 H, Eos % (Auto) 1.5, Baso % (Auto) 0.7, Absolute Neuts (auto) 3.4, Absolute Lymphs (auto) 2.45, Nucleated RBC % 0, PT 13.0, INR 1.0, APTT 26.0, Sodium 138, Potassium 3.3 L, Chloride 106, Carbon Dioxide 25.0, Anion Gap 7, BUN 15, Creatinine 1.16, Estim Creat Clear Calc 62.64, Est GFR (MDRD) Af Amer 81, Est GFR (MDRD) Non-Af 67, BUN/Creatinine Ratio 12.9, Glucose 138 H, Calcium 8.6, Troponin I High Sens 18, B-Natriuretic Peptide 58.6 09/06/23 13:14: Activated Clotting Time 214 H 09/07/23 04:20: WBC 8.3, RBC 4.88, Hgb 14.6, Hct 44.6, MCV 91.4, MCH 29.9, MCHC 32.7, RDW Std Deviation 45.1 H, RDW Coeff of Estella 13.2, Plt Count 257, MPV 9.3, Sodium 139, Potassium 4.0, Chloride 109 H, Carbon Dioxide 24.0, Anion Gap 6, BUN 13, Creatinine 0.92, Estim Creat Clear Calc 78.98, Est GFR (MDRD) Af Amer 105, Est GFR (MDRD) Non-Af 87, BUN/Creatinine Ratio 14.1, Glucose 135 H, Calcium 8.8, Total Bilirubin 0.50, AST 42 H, ALT 23, Alkaline Phosphatase 65, Total Protein 6.7, Albumin 3.4, Globulin 3.3, Albumin/Globulin Ratio 1.0, Triglycerides 91, Cholesterol 187, LDL Cholesterol 103, VLDL Cholesterol 18, HDL Cholesterol 66 Radiography Diagnostic Testing: Radiology Impression Echocardiogram 09/06/23 15:13 Interpretation Summary The estimated ejection fraction is 35-40% %. Moderate LV systolic dysfunction With inferior hypokinesia Mild TR No prior study to compare. Ordering Physician: Rivas Adams Referring Physician: Isiah Sahu Performed By: Lauren Meade and Student Rhythm Strip Rhythm Strip: Sinus Rhythm Rate: 60 Ectopy: None Physical Exam Narrative General: Alert, Oriented x3, Cooperative, No apparent distress HEENT: Atraumatic, PERRLA, EOMI, Normocephalic Oral: Moist Mucosa Neck: Supple, No JVD Lungs: Diminished, Normal air movement, No rhonchi, No wheeze, No rales Cardiovascular: Regular rate, Regular Rhythm, Normal S1, Normal S2, No murmurs Abdomen: Soft, Non Tender, Non-Distended, No Hepato-splenomegaly Extremities: No edema, Capillary Refill Less than 3 Seconds Skin: No rashes, No breakdown Musculoskeletal: No Tenderness to Palpation of Joints or Extremities Neurological: No focal neurological deficits, Motor Exam 5/5 strength throughout, Sensory exam intact to light touch and pain Psych/Mental Status: Normal Affect, Appropriate Assessment & Plan Assessment/Plan (1) ST elevation (STEMI) myocardial infarction: PLAN: Plan 1. STEMI status post stent to right coronary artery on 09/06/2023/essential HTN/HLD ? Echocardiogram with EF of 35 to 40% with moderate LV systolic dysfunction and inferior hypokinesis ? Continue with Norvasc, Lipitor, Coreg, lisinopril ? Blood pressures are tolerating these new medications ? Appreciate cardiology's assistance 2. Depression/anxiety ? Stable ? Continue with home medications DVT: Heparin Charges/Coding Visit Charges Inpatient E&M: 32589 Subs Hosp L2
--- NOTE | 2023-09-07 10:33 | CASEMGMT ---
RN CM Assessment: Face to Face with pt for initial transition planning/care coordination assessment. RN CM introduced self and role at [facility], pt voices understanding and consents to assessment. Pt is A&O x4 and answers all questions appropriately at this time. Pt sitting up in chair with spouse at bedside. Care providers, pharmacy, and demographics verified/updated. Admitting Dx: STEMI PCP: Dr. Colton Rowe Specialists: None Preferred Pharmacy: [facility] in [place] Insurance: Manuel HAJI, pt reports he does have Medicare Prescription Benefit: yes LNOK: Spouse Yumiko [phone] Living Arrangements: Pt lives at home with spouse, independent with ADLs and IADLs. Transportation: Pt drives self and denies concerns with transportation. DME: None HHC/SNF: No history Pt states no concerns with going home at time of dc. Pt states no further concerns/needs. CM to follow. Advised pt to ask CM if any further question/concerns/needs arise, voices understanding. Pt Goal: Home Plan: Home with no skilled needs. Valencia Garcia MSN, RN, CCM
[2023-09-07] MEDS: Lisinopril 10 MG Tablet PO (10:37)
--- NOTE | 2023-09-07 16:15 | PN.CARD_ITS ---
Subjective Subjective Patient seen and evaluated today in ICU along with the nursing staff at bedside Feeling better no symptoms of chest pain. Objective Data Vital Signs: Vital Signs Temp Pulse Resp BP Pulse Ox O2 Del Method 98.4 F 68 16 123/74 H 97 Room Air 09/07/23 14:00 09/07/23 15:00 09/07/23 15:00 09/07/23 15:00 09/07/23 16:02 09/07/23 16:02 Oxygen Delivery Method Room Air Weight: 163 lb 5.8 oz Body Mass Index (BMI) 24.2 Intake & Output: Intake and Output for Last 24 Hours 09/05/23 09/06/23 09/07/23 23:59 23:59 23:59 Intake Total 400 / 400 1697.50 / 1697.50 Output Total 2250 / 2750 1725 / 1725 Balance -1850 / -2350 -27.50 / -27.50 Lab / Micro Data 09/07/23 04:20 09/07/23 04:20 Labs: Laboratory Results - last 24 hr 09/07/23 04:20: WBC 8.3, RBC 4.88, Hgb 14.6, Hct 44.6, MCV 91.4, MCH 29.9, MCHC 32.7, RDW Std Deviation 45.1 H, RDW Coeff of Estella 13.2, Plt Count 257, MPV 9.3, Sodium 139, Potassium 4.0, Chloride 109 H, Carbon Dioxide 24.0, Anion Gap 6, BUN 13, Creatinine 0.92, Estim Creat Clear Calc 78.98, Est GFR (MDRD) Af Amer 105, Est GFR (MDRD) Non-Af 87, BUN/Creatinine Ratio 14.1, Glucose 135 H, Calcium 8.8, Total Bilirubin 0.50, AST 42 H, ALT 23, Alkaline Phosphatase 65, Total Protein 6.7, Albumin 3.4, Globulin 3.3, Albumin/Globulin Ratio 1.0, Triglycerides 91, Cholesterol 187, LDL Cholesterol 103, VLDL Cholesterol 18, HDL Cholesterol 66 Rhythm Strip Rhythm Strip: Sinus Rhythm (Sinus rhythm with infrequent episodes of nonsustained V. tach) Rate: 60 Ectopy: None Cardiology Labs/Tests 09/07/23 04:20: WBC 8.3, RBC 4.88, Hgb 14.6, Hct 44.6, MCV 91.4, MCH 29.9, MCHC 32.7, Plt Count 257, MPV 9.3, Sodium 139, Potassium 4.0, Chloride 109 H, Carbon Dioxide 24.0, Anion Gap 6, BUN 13, Creatinine 0.92, Est GFR (MDRD) Af Amer 105, Est GFR (MDRD) Non-Af 87, BUN/Creatinine Ratio 14.1, Glucose 135 H, Calcium 8.8, Total Bilirubin 0.50, Triglycerides 91, Cholesterol 187, LDL Cholesterol 103, VLDL Cholesterol 18, HDL Cholesterol 66 Rhythm: EKG: ECHO: Stress Test: Cardiac Cath: PCI: CT Surgery: Holter monitor: EPS: PPM: CXR: Chest CT Scan: Radiography Diagnostic Testing: Radiology Impression Echocardiogram 09/06/23 15:13 Interpretation Summary The estimated ejection fraction is 35-40% %. Moderate LV systolic dysfunction With inferior hypokinesia Mild TR No prior study to compare. Ordering Physician: Rivas Adams Referring Physician: Isiah Sahu Performed By: Lauren Meade and Student Assessment & Plan Assessment/Plan (1) ST elevation (STEMI) myocardial infarction: (2) Hypertension: PLAN: Plan 67-year-old patient with a STEMI/inferior Status post PCI and stent to the RCA using drug-eluting stent Moderate colic function With EF in the range of 35-40% Post PCI patient remained stable in CCU Had an episode of nonsustained V. tach I reviewed his cardiac cath lab radiology technologist his current medication discussed in detail with the nursing staff Cardiac care plan; Will continue dual antiplatelet with Brilinta aspirin Beta-regan carvedilol GRETA inhibitor lisinopril And statin atorvastatin. 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 Will monitor on follow-up clinically
[2023-09-07] MEDS: Atorvastatin Calcium 80 MG Tablet PO (21:12)
[2023-09-08] VITALS (11 sets, daily range): BP systolic 101–146; BP diastolic 63–95; PULSE 54–76; RESP 16–21; TEMP 36.4–36.8; O2SAT 94–99; BMI 24.1
--- NOTE | 2023-09-08 08:06 | DCINST_ITS ---
Discharge Instructions Diet Discharge Diet: Low fat / Low cholesterol Activity Discharge Activity: Return to Normal Activity Dressing / Incision Call your doctor if you observe: Fever of 101 or Higher, Shortness of breath, Dizziness, Fainting spells, Swelling in the ankles, Chest pain and Increased palpitations (irregular heartbeat) Follow Up Care Test Results: Test results from this visit will be discussed in further detail at your follow- up appointment, if applicable. Discharge Plan Admission Admit Date/Time: 09/06/23 14:53 Attending Provider: Branden Haas Primary Care Provider: Colton Rowe Consulting Providers: Isiah Sahu; Rivas Adams Discharge Orders/Prescriptions Prescriptions: New atorvastatin 80 mg Tablet 80 mg PO QHS 30 Days Qty: 30 2RF carvedilol 12.5 mg Tablet 12.5 mg PO BID 30 Days Qty: 60 2RF aspirin 81 mg Tablet,Delayed Release (Dr/Ec) 81 mg PO DAILY@0800 30 Days Qty: 30 2RF lisinopril 10 mg Tablet 10 mg PO DAILY 30 Days Qty: 30 2RF Brilinta 90 mg Tablet 90 mg PO BID 30 Days Qty: 60 0RF Continued venlafaxine 150 mg capsule,extended release 24hr 150 mg PO DAILY amlodipine 5 mg tablet 5 mg PO DAILY Discontinued atorvastatin 20 mg tablet 20 mg PO QHS Referrals / Follow Up: Colton Rowe DO [Primary Care Provider] - Within 1 Week Colton Lyon MD [Med Staff - Active Staff] - Within 1 Month Disposition Disposition (needs filled in before D/C Order can be placed): Home, Self Care
[2023-09-08] MEDS: Carvedilol 12.5 MG Tablet PO (09:43)
[2023-09-08] MEDS: amLODIPine 5 MG Tablet PO (09:43)
[2023-09-08] MEDS: Venlafaxine XR 150 MG Capsule PO (09:43)
[2023-09-08] MEDS: TICAGRELOR 90 MG TABLET PO (09:43)
[2023-09-08] MEDS: Aspirin E.C. 81 MG Tablet PO (09:43)
[2023-09-08] MEDS: Lisinopril 10 MG Tablet PO (09:44)
--- NOTE | 2023-09-08 10:00 | EKG12_ITS ---
Test Reason : AM EKG Blood Pressure : / mmHG Vent. Rate : 063 BPM Atrial Rate : 063 BPM P-R Int : 160 ms QRS Dur : 092 ms QT Int : 448 ms P-R-T Axes : 069 -11 -46 degrees QTc Int : 458 ms Normal sinus rhythm T wave abnormality, consider inferior ischemia Abnormal ECG When compared with ECG of 07-SEP-2023 05:15, MANUAL COMPARISON REQUIRED, DATA IS UNCONFIRMED Confirmed by Colton Lyon ([id number]), social media editor ARLENE ARGUELLES ([id number]) on 09/09/2023 9:30:31 AM Referred By: Iisah Sahu Confirmed By:Colton Lyon
--- NOTE | 2023-09-08 14:36 | PCM.DC.SUM ---
Providers Date of Admission: 09/06/23 Primary Care Physician: Dr. Colton Rowe, DO Consultations 09/06/23 15:13 Consult: Cardiology Routine Consulting Provider: Isiah Sahu Reason for Consult: STEMI EMERGENT Consult: No MD Notified: Yes Date Notified: 09/06/23 Time Notified: 14:56 Method of Notification: Verbal Reason For Visit: STEMI Diagnosis Discharge Diagnosis (1) ST elevation (STEMI) myocardial infarction: Status: Acute Code(s): I21.3 - ST elevation (STEMI) myocardial infarction of unspecified site (2) Hypertension: Status: Chronic Code(s): I10 - Essential (primary) hypertension Medications at Discharge Home Medications amlodipine 5 mg tablet 5 mg PO DAILY blood pressure 09/06/23 venlafaxine 150 mg capsule,extended release 24 hr 150 mg PO DAILY depression 09/06/23 aspirin 81 mg tablet,delayed release 81 mg PO DAILY@0800 30 days #30 tabs 09/08/23 atorvastatin 80 mg tablet 80 mg PO QHS 30 days #30 tabs 09/08/23 carvedilol 12.5 mg tablet 12.5 mg PO BID 30 days #60 tabs 09/08/23 lisinopril 10 mg tablet 10 mg PO DAILY 30 days #30 tabs 09/08/23 ticagrelor 90 mg tablet (Brilinta) 90 mg PO BID 30 days #60 tabs 09/08/23 Hospital Course Operations None Procedures 2-D Echocardiogram and Cardiac catheterization Summary of Care Provided Minutes Spent on Discharge: 35 Hospital Course: Per HPI: BIBI GARCIA, is a 67 M who presents to the emergency room at [facility] with complaints of substernal chest pain radiating into his neck and down his arms, it was associated with diaphoresis, he described the pain as an ache. Patient called 911, EMS EKG showed ST elevations in the inferior leads as well as reciprocal changes in the septal leads as well as depressions in 1 and aVL. STEMI alert was called, patient was given 324 mg aspirin prior to arrival in the ER. Patient stated that his chest pain was improved compared to when it first started. Patient was started on IV heparin and Brilinta in the emergency room, interventional cardiology was contacted and the patient was taken to the Clinical Neuropsychologist where a stent was placed in the right coronary artery. 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 Patient was admitted to ICU after the procedure in stable condition, his blood pressure was elevated so his medications were adjusted. Patient had no complaints of chest pain when I examined him in the ICU. Patient's sons were present and I answered any questions they might have. Patient stated that he had a heart attack approximately 10 to 15 years ago and underwent a catheterization but no intervention was done at that time. Patient stated that he stopped taking aspirin on his own. Patient does smoke. Hospital Course: 1. STEMI status post stent to right coronary artery on 09/06/2023/essential HTN/HLD?67-year-old male presented to the hospital with substernal chest pain radiating down to his neck and his arms. He was found to have a right coronary artery lesion that was stented on 09/06/2023. Denies any chest pain on the day of discharge and states that he is otherwise doing well. During his hospitalization he did have an echocardiogram which demonstrated an EF of 35 to 40% with moderate LV dysfunction with inferior hypokinesis. Will continue on all of his blood pressure medications, he was started on Coreg at 12.5 mg p.o. twice daily as well as lisinopril 10 mg p.o. daily will continue with his home Norvasc at 5 mg daily and will increase his home Lipitor to 80 mg nightly. Also need to remain on aspirin as well as Brilinta and I recommend that he follow-up with his PCP in 3 to 5 days as well as with cardiology in a month. I discussed with him the plan for discharge today he expressed understanding of the risk benefits of going home and would like to go home today. Physical Exam Narrative General: Alert, Oriented x3, Cooperative, No apparent distress HEENT: Atraumatic, PERRLA, EOMI, Normocephalic Oral: Moist Mucosa Neck: Supple, No JVD Lungs: Diminished, Normal air movement, No rhonchi, No wheeze, No rales Cardiovascular: Regular rate, Regular Rhythm, Normal S1, Normal S2, No murmurs Abdomen: Soft, Non Tender, Non-Distended, No Hepato-splenomegaly Extremities: No edema, Capillary Refill Less than 3 Seconds Skin: No rashes, No breakdown Musculoskeletal: No Tenderness to Palpation of Joints or Extremities Neurological: No focal neurological deficits, Motor Exam 5/5 strength throughout, Sensory exam intact to light touch and pain Psych/Mental Status: Normal Affect, Appropriate Weight / BMI Weight Weight: 163 lb 2.273 oz Body Mass Index (BMI) 24.1 ABG / Lab / Microbiology Data 09/07/23 04:20 09/07/23 04:20 D/C Instructions Discharge Diet: Low fat / Low cholesterol Call your doctor if you observe: Fever of 101 or Higher, Shortness of breath, Dizziness, Fainting spells, Swelling in the ankles, Chest pain and Increased palpitations (irregular heartbeat) Meaningful Use Info Meaningful Use Meaningful Use Diagnoses (Choose all that apply): None applicable Ischemic Stroke Statin Dosing Therapy Reference: STATIN DOSE THERAPY REFERENCE: * Patients > 75 years receive moderate or high dose statin therapy. * Patients 75 years or YOUNGER should receive HIGH intensity statin dose unless contraindicated. You will be required to document reason for non-treatment if statin daily dose does not meet guidelines. HIGH DOSE STATIN THERAPY DAILY Atorvastatin > than or = to 40 mg Rosuvastatin > than or = to 20 mg Amlodipine + Atorvastatin > than or = to 2.5/40 mg Ezetimibe + Simvastatin 10/80 mg Simvastatin 80mg Discharge Plan Admission Admit Date/Time: 09/06/23 14:53 Attending Provider: Branden Haas Primary Care Provider: Colton Rowe Consulting Providers: Isiah Sahu; Rivas Adams Discharge Orders/Prescriptions Prescriptions: New atorvastatin 80 mg Tablet 80 mg PO QHS 30 Days Qty: 30 2RF carvedilol 12.5 mg Tablet 12.5 mg PO BID 30 Days Qty: 60 2RF aspirin 81 mg Tablet,Delayed Release (Dr/Ec) 81 mg PO DAILY@0800 30 Days Qty: 30 2RF lisinopril 10 mg Tablet 10 mg PO DAILY 30 Days Qty: 30 2RF Brilinta 90 mg Tablet 90 mg PO BID 30 Days Qty: 60 0RF Continued venlafaxine 150 mg capsule,extended release 24hr 150 mg PO DAILY amlodipine 5 mg tablet 5 mg PO DAILY Discontinued atorvastatin 20 mg tablet 20 mg PO QHS Referrals / Follow Up: Colton Rowe DO [Primary Care Provider] - Within 1 Week Colton Lyon MD [Med Staff - Active Staff] - Within 1 Month Disposition Disposition (needs filled in before D/C Order can be placed): Home, Self Care Charges/Coding Visit Charges Inpatient E&M: 53459 Disch Hosp >30min
== END 2023-09-08 09:45 | disposition home or self-care (01) | DRG 321 ==
LOC: ED 12:46 → ICU 13:30 → ED 16:38 → CLSP 16:38
PROVIDERS: Admitting Provider Internal Medicine; Emergency Provider Emergency Medicine; PCP Student in an Organized Health Care Education/Training Program; Referring Provider Internal Medicine Interventional Cardiology; Visit Provider Family Medicine
DX: I21.11 ST elevation (STEMI) myocardial infarction involving right coronary artery (principal); E43 Unspecified severe protein-calorie malnutrition; I47.20 Ventricular tachycardia, unspecified; I10 Essential (primary) hypertension; F32.A Depression, unspecified; E78.5 Hyperlipidemia, unspecified; I25.10 Atherosclerotic heart disease of native coronary artery without angina pectoris; F17.210 Nicotine dependence, cigarettes, uncomplicated; I25.2 Old myocardial infarction; Z68.24 Body mass index [BMI] 24.0-24.9, adult
CPT/HCPCS: 80048; 80053; 80061; 83880; 84484; 85025; 85027; 85347; 85610; 85730; 92928; 93005; 93306; 93454; 97802; 99282; J7030; Q9967; A4216; C1725; C1769; C1874; C1887; C1894; C9600

== ENCOUNTER → 2023-10-31 | Outpatient (CLI) | payer MEDICARE, MEDICAID, SELFPAY ==
--- NOTE | 2023-10-31 10:52 | ECHOL_ITS ---
Reason For Study: S/P MN Procedure This was a limited 2D transthoracic echocardiogram. Myocardial strain analysis was performed in this exam to aid in the assessment of cardiac function. Exam performed in department. Left Ventricle Normal LV size. The estimated ejection fraction is 55 %. No regional wall motion abnormalities noted. Right Ventricle Normal RV size. Normal systolic function. Atria The left and right atria are normal. Bubble contrast study negative for right to left interatrial shunt. Mitral Valve There is no mitral valve stenosis. Trivial mitral valve insufficiency. Tricuspid Valve There is no tricuspid stenosis. Trivial tricuspid valve insufficiency. Unable to estimate RV systolic pressure due to insufficient tricuspid regurgitant envelope. Aortic Valve Trisinus/trileaflet aortic valve. There is no aortic stenosis. No aortic valve insufficiency. Pulmonic Valve There is no pulmonic valvular stenosis. No pulmonic valve insufficiency. Great Vessels Normal aortic root. Pericardium/Pleural No pericardial effusion. Medication 22 gauge I.V. with prn adaptor inserted into right arm. Performed a rapid injection of agitated mix of 9 cc saline and 1cc air to assess for atrial septal defect. MMode/2D Measurements & Calculations LVIDd: 5.1 cm IVSd: 1.1 cm LA dimension: 3.7 cm LVIDs: 3.7 cm LVPWd: 1.1 cm FS: 27.0 % LVAd ap4: 31.3 cm2 SV(MOD-sp4): 48.3 ml SV(sp4-el): 52.0 ml LVLd ap4: 7.8 cm EDV(MOD-sp4): 102.9 ml EDV(sp4-el): 106.3 ml LVAs ap4: 21.2 cm2 LVLs ap4: 7.0 cm ESV(MOD-sp4): 54.6 ml ESV(sp4-el): 54.3 ml EF(MOD-sp4): 47.0 % EF(sp4-el): 48.9 % ECHO/Echo, Limited Study Interpretation Summary The estimated ejection fraction is 55 %. Trivial mitral valve insufficiency. Ordering Physician: Kate Albrecht Referring Physician: Kate Albrecht Performed By: Toby Clinton RCS
== END | disposition home or self-care (01) ==
LOC: CVS 10:51
PROVIDERS: PCP Student in an Organized Health Care Education/Training Program; Referring Provider Physician Assistant Medical; Visit Provider Physician Assistant Medical
DX: R55 Syncope and collapse (principal)
CPT/HCPCS: 93308; A4216